=== PATIENT | male | born 1970 | race Caucasian/White ===

== ENCOUNTER 2021-06-22 03:17 | Emergency (ER) | payer MEDICAID, SELFPAY ==
--- NOTE | 2021-06-22 03:14 | ECG_ITS ---
APPROVED REPORT Exam: Resting ECG HR:80 bpm ECG Measurements Heart Rate 80 AXES AL 132 P 109 QRSd 86 QRS 36 QT 382 T 110 QTc 440 Conclusion Normal sinus rhythm Low voltage QRS Abnormal QRS-T angle, consider primary T wave abnormality Abnormal ECG Electronically signed by : Sukumar Eli MD 06/22/2021 16:54:45
[2021-06-22 03:16] VITALS: BP 118/77; PULSE 80; RESP 19; TEMP 36.8; O2SAT 96; BMI 40.3
[2021-06-22 03:26] VITALS: BMI 35.5
--- NOTE | 2021-06-22 03:27 | XR_ITS ---
PROCEDURE INFORMATION: Exam: XR Chest Exam date and time: 06/22/2021 3:27 AM Age: 50 years old Clinical indication: Shortness of breath; Sternal or substernal pain; Patient HX: Chest pain, smoker, no SX, SOA; Additional info: Cp TECHNIQUE: Imaging protocol: XR of the chest. Views: 2 views. COMPARISON: No relevant prior studies available. FINDINGS: Tubes, catheters and devices: Battery overlies the left hilum. Lungs: Unremarkable. No consolidation. Pleural spaces: There is blunting of the left costophrenic angle, which may represent scarring or a small pleural effusion. Heart/Mediastinum: Unremarkable. No cardiomegaly. Diaphragm: There is nonspecific elevation of the left hemidiaphragm. Bones/joints: Unremarkable. IMPRESSION: There is blunting of the left costophrenic angle, which may represent scarring or a small pleural effusion.
[2021-06-22 03:39] LABS: Alanine Aminotransferase 34 U/L (12-78); Albumin Level 4.3 g/dl (3.5-5.0); Albumin/Globulin Ratio 1.5 (1.1-1.8); Alkaline Phosphatase 47 U/L (38-126); Anion Gap 15.6 mEq/L (5-15); Aspartate Amino Transferase 34 U/L (17-59); Basophils # 0.1 K/mm3 (0-0.2); Basophils % 0.7 % (0.1-2.0); Bilirubin,Total 0.4 mg/dl (0.2-1.3); Blood Urea Nitrogen 17 mg/dl (9-20); Calcium 8.4 mg/dl (8.4-10.2); Carbon Dioxide 23 mmol/L (22.0-30.0); Chloride 108 mmol/L (98-107); Creatinine Clearance Estimated 104 mL/min (50-200); Eosinophils # 0.2 K/mm3 (0.0-0.4); Eosinophils % 1.4 % (0.1-12.0); Estimated Glomerular Filt Rate 64 ml/min (>60); GFR (African American) 78 ML/MIN (>60); Globulin 2.8 g/dL (1.3-3.2); Glucose 104 mg/dl (74-100); Hematocrit 41.8 % (42.0-52.0); Hemoglobin 14.5 g/dL (14.1-18.0); Lymphocytes % 27.4 % (10-50); Mean Corpuscular HGB Conc 34.6 g/dL (31.8-35.4); Mean Corpuscular Hemoglobin 30.4 pg (27.0-31.2); Mean Corpuscular Volume 87.9 fl (80-94); Monocytes # 0.5 K/mm3 (0.1-1.0); Monocytes % 4.2 % (1.7-9.3); Neutrophils # 7.4 K/mm3 (1.8-7.8); Neutrophils % 66.4 % (37.0-80.0); Platelet Count 180 K/mm3 (142-424); Potassium 3.6 mmoL/L (3.5-5.1); Red Blood Count 4.75 M/mm3 (4.60-6.20); Red Cell Distribution Width 13.5 % (11.5-17.5); Sodium 143 mmol/L (136-145); Total Protein,Serum 7.1 g/dl (6.3-8.2); White Blood Count 11.1 K/mm3 (4.8-10.8)
[2021-06-22 03:40] LABS: Ethyl Alcohol 195 mg/dl (0-10)
[2021-06-22 03:45] LABS: C-Reactive Protein 3.4 mg/L (0-4)
[2021-06-22 03:46] LABS: Coronavirus 19, PCR Not Detected (NotDetected); Influenza A, PCR Not Detected (NotDetected); Influenza B, PCR Not Detected (NotDetected)
[2021-06-22 03:59] LABS: Procalcitonin 0.078 ng/mL (0.0-2.0)
[2021-06-22 04:02] LABS: Troponin I < 0.01 ng/ml (0.00-0.034)
[2021-06-22 04:13] LABS: Erythrocyte Sedimentation Rate 16 mm/hr (0-15)
[2021-06-22 04:30] VITALS: BP 112/70; PULSE 72; RESP 16; TEMP 36.7; O2SAT 95
--- NOTE | 2021-06-22 04:37 | PC.NURSE ---
Pt requested to leave, stating his chest pain was gone and his SOA was no worse than like it usually is . Educated pt that his chest pain could be resolved d/t the nitro paste. Pt stated I will go see my regular heart doctor in [place] . Pt educated the possible need for admission and that if he decided to leave, his symptoms could get worse, heart damage, or . Pt stated his understanding. I s/w pt's and updated her on pt's wish to leave, she wanted him to stay and seek treatment however pt continued to wish to leave so stated she would take him home and bring back if his sx's returned or worsened. AMA paper completed & IV removed. Pt and his reported that Dr. Mcqueen in [place], [place] is pt's hide or skin buffer and they will call her office this AM. Pt is wearing a halter monitor from their office.
== END 2021-06-22 04:35 | disposition left against medical advice (07) ==
PROVIDERS: Emergency Provider Emergency Medicine; PCP Emergency Medicine
DX: Z53.21 Procedure and treatment not carried out due to patient leaving prior to being seen by health care provider (principal); R07.9 Chest pain, unspecified
CPT/HCPCS: 71046; 80053; 84145; 84484; 85025; 85651; 86140; 93005; 96365; 99283; U0003

== ENCOUNTER → 2021-07-13 12:01 | Outpatient (CLI) | payer MEDICAID, SELFPAY ==
[2021-07-13 13:00] VITALS: PULSE 67
--- NOTE | 2021-07-13 13:26 | CT_ITS ---
PROCEDURE: CT CHEST WO CON CLINICAL INDICATION: SOB For several months, chest tightness and heaviness COMPARISON: No exams were available for comparison TECHNIQUE: Axial images obtained with sagittal and coronal reformats. All CT scans at the facility use one or more dose reduction, viz: automated exposure control, ma/kV adjustment per patient size (including targeted exams where dose is matched to indication, i.e. head), or iterative reconstruction technique. FINDINGS: HEART AND MEDIASTINAL STRUCTURES: Cardiac size is normal. There couple normal size nodes in the prevascular space of the superior mediastinum and there is a normal size node in the pretracheal space at the level of the yeni. There is a calcified nodes left hilum. LUNGS AND PLEURAL SPACES: The lung skinner are well expanded and appear clear of infiltrate. There is minimal postinflammatory scarring and/or atelectasis at the left posterior gutter. BONY STRUCTURES: No acute bony abnormalities apparent. UPPER ABDOMEN: Unremarkable. ADDITIONAL FINDINGS: No other significant abnormalities. IMPRESSION: No significant abnormality identified Dictated by: Dr. Michael Thomas MD 07/13/2021 14:49 Dr. Michael Thomas MD in [place] 07/13/2021 14:49
--- NOTE | 2021-07-13 13:41 | RESP.PFTSS ---
Patient used his Symbicort inhaler around 3 hours before the PFT.
== END ==
PROVIDERS: PCP Emergency Medicine; Visit Provider Internal Medicine Pulmonary Disease
DX: R91.8 Other nonspecific abnormal finding of lung field (principal)
CPT/HCPCS: 71250; 94060; 94618; 94640; 94726; 94729

== ENCOUNTER → 2021-08-30 08:12 | Outpatient (POV) | payer MEDICAID, SELFPAY ==
[2021-08-30 08:28] VITALS: BP 118/72; PULSE 74; RESP 18; O2SAT 98; BMI 32.3
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
== END ==
PROVIDERS: Visit Provider Clinical Nurse Specialist Family Health
DX: M54.50 Low back pain, unspecified (principal); M54.16 Radiculopathy, lumbar region
CPT/HCPCS: 99202; G0463

== ENCOUNTER → 2021-09-06 16:54 | Outpatient (CLI) | payer MEDICAID, SELFPAY ==
--- NOTE | 2021-09-06 16:58 | MR_ITS ---
PROCEDURE: MR LUMBAR SPINE WO CON CLINICAL INDICATION: LBP Low back pain with bilateral leg pain and numbness. COMPARISON: No exams were available for comparison TECHNIQUE: Standard multiplanar multiecho sequences are performed without contrast. 3-D MIP and myelographic images are also rendered and reviewed FINDINGS: There is straightening of the lumbar lordosis. There is thoracolumbar spondylosis. There is disc desiccation at L2-3 and L3-4. At L1-2, there is severe motion artifact limiting evaluation. There is probably a diffuse disc bulge and facet arthropathy. Otherwise nondiagnostic. At L2-3, there is severe motion artifact limiting evaluation. There is probably diffuse disc bulge producing at least moderate bilateral neural foraminal stenosis. Otherwise nondiagnostic. At L3-4, there is severe motion artifact limiting evaluation. There is probably diffuse disc bulge and facet arthropathy with canal and neural foraminal stenosis which cannot be further evaluated due to the severe motion artifact. At L4-5, there is disc bulge asymmetric to the right producing severe right neural foraminal stenosis and moderate left neural foraminal stenosis. There is facet arthropathy and edema in bilateral facet joints. IMPRESSION: Overall nondiagnostic study due to severe motion artifact. There is probable multilevel neuroforaminal stenosis and probable canal stenosis. Dictated by: Yulissa Iqbal MD 09/07/2021 09:13 Yulissa Iqbal MD in [place] 09/07/2021 09:13
== END ==
PROVIDERS: PCP Emergency Medicine; Visit Provider Clinical Nurse Specialist Family Health
DX: M54.50 Low back pain, unspecified (principal)
CPT/HCPCS: 72148; 76376

== ENCOUNTER 2021-09-18 19:06 | Emergency (ER) | payer MEDICAID, SELFPAY ==
[2021-09-18 20:33] VITALS: BP 148/86; PULSE 72; RESP 21; TEMP 36.7; O2SAT 95; BMI 33.5
--- NOTE | 2021-09-18 20:40 | HMH.EDUTC ---
[facility] [place] Clinical Impression: Sinusitis Disposition: Home, Self-Care Condition on Discharge: Good Instructions: DI for COVID-19 (Suspected or Confirmed ), Preventing the Spread of Coronavirus Discharge Instructions Additional Instructions: *Monitor Temp, Over the counter Motrin or Tylenol as directed/as needed Tylenol every 4 hours and Motrin every 6 hours (as long as your family doctor has told you that you can take it) for fever or pain. and straight to ER if unable to lower temp less than 101.0 after medication given *Warm salt water gargles may help to soothe the throat *Throat Lozenges *Warm fluids like tea with honey may help to soothe the throat *Sleep elevated *Humidifier/Vaporizer Follow up IMMEDIATELY for new or worsening symptoms or no Noticeable improvement over the next 48-72 hours. 911 for difficulty breathing or swallowing You were tested for today for COVID19 your test result should be back in the next 24-48 hours, you may call to the [facility] to see if your test results are back in the next 48 hours [phone] [facility] hours are 9am-9pm You was given a handout with instructions for Self Quarantine and Self isolation for while you wait on test results and what to do if they are positive If you are positive the Health Dept will be contacting you also Make sure to take your Vitamins Vit. C Vit D and Zinc if you can take them Prescriptions: predniSONE [Deltasone 10mg tablet] 10 mg PO BID 5 Days #10 tab Transmission Status: Pending to [facility] #[id number] Azithromycin [Z-Karthikeyan 250mg Tab] 250 mg PO DIRECTED #6 tab Transmission Status: Pending to [facility] #[id number] Referrals: Burt Ardon MD [Primary Care Provider] - As needed Forms: Work/School Release Time of Disposition: 20:54 Medical Decision Making - Carlos Inquiry Pt receiving controlled substance: No Carlos was queried for this patient: No Vital Signs: 09/18/21 20:33 Temperature 98.0 F Temperature Source Oral Pulse Rate [Left Radial] 72 Respiratory Rate 21 Blood Pressure [Right Arm] 148/86 H Blood Pressure Mean [Right Arm] 106 Blood Pressure Source [Right Arm] Automatic Cuff Blood Pressure Position [Right Arm] Sitting 02 Sat by Pulse Oximetry 95 Oxygen Delivery Method Room Air Orders (Tests/Meds): ORDERS Category Date Time Status Covid-19 Nasal PCR ([facility]) Routine Lab 09/18/21 20:24 Ordered Medical Decision Narrative: Patient states that he has taken prednisone and azithromycin in the past without complications or reactions [facility] [place] - General Stated complaint: covid exposure and symptoms Time Seen by Provider: 09/18/21 20:40 Mode of Arrival: Ambulatory Source of Information: Patient Limitations: No Limitations Description of Symptoms (Recalled from Triage Doc. by RN): c/o cough, runny nose, MARTIN and body aches for one week HEENT Symptoms (Recalled from RN notes): Yes Resp Symptoms (Recalled from RN notes): No Skin Symptoms (Recalled from RN notes): No MS Symptoms (Recalled from RN notes): No Functional Status (Recalled from RN notes): na - History of Present Illness Provider Complaint: Patient states that he hasnt felt well for about a week or two States that he has been having sinus pain, pressure, runny nose feeling feverish, cough and body aches States that his tested positive for COVID about 2 days ago and they are worried that he may have it too or may have sinus infection so he came in to get tested - Related Data Home Medications Medication Instructions Recorded Confirmed amlodipine 10 mg tablet 10 mg PO DAILY tab 06/06/21 08/16/21 citalopram 40 mg tablet 40 mg PO HS tab 06/06/21 08/16/21 diclofenac sodium 75 mg 75 mg PO DAILY tab 06/06/21 08/16/21 tablet,delayed release fenofibrate nanocrystallized 48 mg 1 tab PO DAILY 06/06/21 08/16/21 tablet gabapentin 600 mg tablet 600 mg PO BID tab 06/06/21 08/16/21 lisinopril 20 1 tab PO DAILY tab 06/06/21 08/16/21 mg-hyd
[2021-09-18 20:55] VITALS: BP 148/86; PULSE 72; RESP 21; TEMP 36.7; O2SAT 95
== END 2021-09-18 20:58 | disposition home or self-care (01) ==
PROVIDERS: Emergency Provider Nurse Practitioner; PCP Emergency Medicine
DX: J01.90 Acute sinusitis, unspecified (principal); Z20.822 Contact with and (suspected) exposure to COVID-19; K21.9 Gastro-esophageal reflux disease without esophagitis; E78.5 Hyperlipidemia, unspecified; I10 Essential (primary) hypertension; F17.210 Nicotine dependence, cigarettes, uncomplicated; Z88.0 Allergy status to penicillin
CPT/HCPCS: 99202; C9803; G0463; U0003; U0005

== ENCOUNTER → 2021-09-27 08:58 | Outpatient (POV) | payer MEDICAID, SELFPAY ==
[2021-09-27 09:23] VITALS: BP 143/80; PULSE 92; RESP 18; O2SAT 97; BMI 31.3
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
== END ==
PROVIDERS: Visit Provider Clinical Nurse Specialist Family Health
DX: M51.16 Intervertebral disc disorders with radiculopathy, lumbar region (principal)
CPT/HCPCS: 99212; G0463

== ENCOUNTER 2021-10-12 08:12 | Day surgery (SDC) | payer MEDICAID, SELFPAY ==
[2021-10-12 08:17] VITALS: BP 154/89; PULSE 90; RESP 18; TEMP 36.9; O2SAT 96; BMI 35.5
[2021-10-12 08:58] VITALS: BP 129/86; PULSE 81; RESP 18; O2SAT 96
[2021-10-12 09:03] VITALS: BP 130/88; PULSE 91; RESP 18; O2SAT 97
--- NOTE | 2021-10-12 09:09 | P.PCN_ITS ---
- Procedure Date: 10/12/21 Time: 09:09 Anesthesiologist:: Eliazar Moon MD Complications:: None Pre-procedure Diagnosis:: Degenerative disc disease of lumbar spine with lumbar radiculopathy symptoms Post-procedure Diagnosis:: Same Indications for Procedure:: Patient is a pleasant 51-year-old white male who we are treating for low back pain with lumbar radiculopathy symptoms. He has increasing low back pain radiating down both legs left greater than right. We will plan on a lumbar epidural steroid injection today to see if this gives him adequate relief of his pain symptoms. He is currently on gabapentin 600 mg 3 times a day and Percocet. He continues to have significant pain. He was told Dr. Juarez does not take his insurance we will have to find him another neurosurgeon for evaluation. Procedure Details:: Informed consent was obtained and the risk and benefits of the procedure was explained to the patient. The patient was taken to the procedure room. The patient was placed prone on the procedure table. The patient was prepped and draped in sterile fashion. C-arm fluoroscopy was used to view the lumbar spine. Skin and subcutaneous tissues were anesthetized using lidocaine. I placed an 18-gauge epidural needle and advanced into the L4-L5 interspace using fluoroscopic guidance and [id number] to air. After confirmation of need le placement in the epidural space with dye I injected 2 mL of lidocaine 1.5% with Depo-Medrol 80 mg. Patient tolerated the procedure well with no complications. Plan and Disposition:: We will follow-up with him in 2 weeks. Will reevaluate symptoms at that time. We will also refer him to another neurosurgeon that is in network with his insurance.
[2021-10-12 09:14] VITALS: BP 140/96; PULSE 85; RESP 20; O2SAT 95
--- NOTE | 2022-01-10 09:05 | PC.NURSE ---
notified by Dr. Dc's office, neurosurgery, that they have been unable to contact patient to schedule an evaluation.
== END 2021-10-12 09:15 | disposition home or self-care (01) ==
LOC: SC.PAINP 08:13
PROVIDERS: Visit Provider Anesthesiology
DX: M51.16 Intervertebral disc disorders with radiculopathy, lumbar region (principal); E78.5 Hyperlipidemia, unspecified; I10 Essential (primary) hypertension; J44.9 Chronic obstructive pulmonary disease, unspecified; K21.9 Gastro-esophageal reflux disease without esophagitis; Z72.0 Tobacco use; F12.90 Cannabis use, unspecified, uncomplicated; Z88.0 Allergy status to penicillin; Z79.899 Other long term (current) drug therapy
CPT/HCPCS: 62323; J1040; Q9966

== ENCOUNTER 2024-03-31 13:50 | Outpatient (POV) | payer MEDICAID, SELFPAY ==
[2024-03-31 13:58] VITALS: BP 152/92; PULSE 84; RESP 18; O2SAT 95; BMI 36.6
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
== END 2024-03-31 23:59 | disposition home or self-care (01) ==
PROVIDERS: Visit Provider Nurse Practitioner Family
DX: M51.16 Intervertebral disc disorders with radiculopathy, lumbar region (principal); G89.4 Chronic pain syndrome
CPT/HCPCS: 99212; G0463